=== PATIENT | female | born 1955 | race Caucasian/White ===

== ENCOUNTER 2020-01-09 15:41 | Emergency (ER) | payer BC ==
[2020-01-09 15:51] VITALS: BP 120/61; PULSE 90
--- NOTE | 2020-01-09 16:19 | EDM.PDOC ---
ED HPI GENERAL MEDICAL PROBLEM - General Chief Complaint: Upper Extremity Injury/Pain Stated Complaint: FALL VIA NORTH Time Seen by Provider: 01/09/20 15:42 Source of Information: Reports: Patient, EMS, RN, RN Notes Reviewed History Limitations: Reports: No Limitations - History of Present Illness INITIAL COMMENTS - FREE TEXT/NARRATIVE: Patient was walking her dog today when they came up on another known dog. Patient was not paying attention and her dog pulled to the end of its leash causing her to lose balance and fall. She landed predominantly on her right knee and probably rolling hitting her left elbow and shoulder. She also has a small abrasion on her left eyebrow. Patient denies loss of consciousness, denies headache but states she had nausea and diaphoresis just after the fall. She feels this is new the pain. She has limited range of motion in her left shoulder, her left elbow and has difficulty with bearing weight and flexing her right knee. Onset: Today, Sudden Onset Date: 01/09/20 Onset Time: 14:00 Duration: Minutes:, Constant Location: Reports: Head (Abrasion at left eyebrow,), Upper Extremity, Left (Sore shoulder and elbow), Lower Extremity, Right (Sore knee) Quality: Reports: Ache Severity: Moderate (Rates pain at a 3-4 overall) Improves with: Reports: Immobilization Worsens with: Reports: Movement Context: Reports: Trauma (Patient was walking her dog) Associated Symptoms: Denies: Confusion, Chest Pain, Headaches, Syncope, Weakness Left Shoulder Pain Score (Numeric/FACES): 4 Left Knee Pain Score (Numeric/FACES): 2 - Related Data Allergies Allergy/AdvReac Type Severity Reaction Status Date / Time amoxicillin trihydrate Allergy Cannot Verified 01/09/20 15:46 [From Augmentin] Remember potassium clavulanate Allergy Cannot Verified 01/09/20 15:46 [From Augmentin] Remember Sulfa (Sulfonamide Allergy Cannot Verified 01/09/20 15:46 Antibiotics) Remember Home Meds: Home Meds Aspirin 81 mg PO DAILY 03/31/15 [History] Lisinopril [Prinivil] 20 mg PO DAILY 03/31/15 [History] Multivitamin [Multiple Vitamins] 1 tab PO DAILY 03/31/15 [History] Past Medical History HEENT History: Reports: Impaired Vision Cardiovascular History: Reports: High Cholesterol Genitourinary History: Reports: None Musculoskeletal History: Reports: Other (See Below) Other Musculoskeletal History: hip and collarbone Oncologic (Cancer) History: Reports: Cervix - Past Surgical History Head Surgeries/Procedures: Reports: None HEENT Surgical History: Reports: None Cardiovascular Surgical History: Reports: None Female Surgical History: Reports: Other (See Below) Musculoskeletal Surgical History: Reports: Hip Replacement Oncologic Surgical History: Reports: None Dermatological Surgical History: Reports: None Social & Family History - Tobacco Use Smoking Status *Q: Former Smoker Used Tobacco, but Quit: Yes Month/Year Tobacco Last Used: 08/2019 Second Hand Smoke Exposure: No - Caffeine Use Caffeine Use: Reports: Coffee - Alcohol Use Days Per Week of Alcohol Use: 7 Number of Drinks Per Day: 2 Total Drinks Per Week: 14 - Recreational Drug Use Recreational Drug Use: No Review of Systems - Review of Systems Review Of Systems: See Below Constitutional: Reports: No Symptoms Eyes: Reports: No Symptoms Ears: Reports: No Symptoms Nose: Reports: No Symptoms Mouth/Throat: Reports: No Symptoms Respiratory: Denies: Shortness of Breath, Wheezing, Pleuritic Chest Pain, Cough, Sputum Cardiovascular: Denies: Chest Pain, Edema, Irregular Heart Rate, Lightheadedness, Palpitations GI/Abdominal: Reports: Nausea (She first felt she notes due to pain and resolved since incident.). Denies: Abdominal Pain Genitourinary: Reports: No Symptoms Musculoskeletal: Reports: Shoulder Pain (Left), Arm Pain (Left), Joint Pain (Right knee), Joint Swelling (Right knee), Other (Difficulty bearing weight due to knee pain) Skin: Reports: Wound (Abrasion left eyebrow, right knee) Neurological: Denies: Confusion, Dizziness, Headache, Numbness, Paresthesia, Seizure, Tingling, Tremors Psychiatric: Reports: No Symptoms ED EXAM, GENERAL - Physical Exam Exam: See Below Exam Limited By: No Limitations General Appearance: Alert, WD/WN, No Apparent Distress Eye Exam: Left Eye: PERRL Ears: Normal External Exam, Normal Canal, Hearing Grossly Normal, Normal TMs Nose: Normal Inspection, Normal Mucosa, No Blood Throat/Mouth: Normal Inspection, Normal Lips, Normal Teeth, Normal Gums, Normal Oropharynx Head: Normocephalic, Other (Abrasion left eyebrow) Neck: Normal Inspection, Supple, Non-Tender, Full Range of Motion Respiratory/Chest: No Respiratory Distress, Lungs Clear, Normal Breath Sounds, No Accessory Muscle Use, Chest Non-Tender Cardiovascular: Normal Peripheral Pulses, Regular Rate, Rhythm, No Edema, No Gallop, No JVD, No Murmur, No Rub GI/Abdominal: Normal Bowel Sounds, Soft, Non-Tender, No Organomegaly, No Distention, No Abnormal Bruit, No Mass, Pelvis Stable Back Exam: Normal Inspection, Full Range of Motion Extremities: Normal Inspection, No Pedal Edema, Normal Capillary Refill, Joint Swelling (Right knee), Arm Pain (Left shoulder and elbow), Limited Range of Motion (Left shoulder, left elbow, right knee), Redness (Knee). No: Normal Range of Motion, Non-Tender, Pedal Edema Neurological: Alert, Oriented, CN II-XII Intact, Normal Cognition, Normal Re flexes, No Motor/Sensory Deficits Psychiatric: Normal Affect, Normal Mood Skin Exam: Warm, Dry, Normal Color, No Rash, Erythema (Right knee), Increased Warmth (Right knee). No: Intact (Reason left eyebrow, right knee) Course - Vital Signs Last Recorded V/S: Last Vital Signs Temp 36.4 C 01/09/20 15:47 Pulse 90 01/09/20 15:47 Resp 16 01/09/20 15:47 BP 120/61 01/09/20 15:47 Pulse Ox 99 01/09/20 15:47 - Orders/Labs/Meds Orders: Active Orders 24 hr Category Date Time Status Elbow 2V Lt [CR] Stat Exams 01/09/20 16:08 Taken Knee 1V or 2V Lt [CR] Stat Exams 01/09/20 16:08 Taken Shoulder Comp Lt [CR] Stat Exams 01/09/20 16:08 Taken DME for Discharge [COMM] Routine Oth 01/09/20 17:22 Ordered Lt Elbow x-ray: Preliminary read no fractures or dislocations noted Right knee x-ray: Preliminary read vertical fracture of the right patella, no dislocations or fractures noted in the femur, tibia or fibula Left shoulder x-ray: Preliminary read proximal humeral head fracture dislocation noted. Consult with orthopedics [facility] knee immobilizer to right knee, sling for left arm. He will look at x-rays once he can get to a terminal. If he has any change in plan he will call the patient directly otherwise she is to be seen Sunday at 9 AM in the [place] [facility]. Patient is provided with providers name and number in case he has any questions or problems. Pt provided prescription for hydrocodone 10/04/2024 #20. Meds: Medications Discontinued Medications Generic Name Dose Route Start Last Admin Trade Name Paco PRN Reason Stop Dose Admin Hydrocodone Bitart/Acetaminophen 1 tab 01/09/20 16:36 01/09/20 16:42 [place] 325-5 Mg PO 01/09/20 16:37 1 tab ONETIME ONE Administration - Radiology Interpretation Free Text/Narrative:: See orders. - Re-Assessments/Exams Free Text/Narrative Re-Assessment/Exam: 01/09/20 21:21 Pt feeling better after pain medication. Rates pain at a 3 following pain meds. Pt informed of fractures seen on xray, consult with ortho, and ortho recommendations. Pt feels comfortable going home and following up with orthol Pt. has arranged work schedule to stay home with pt. Departure - Departure Time of Disposition: 18:29 Disposition: Home, Self-Care 01 Condition: Fair Clinical Impression: Fracture of humeral head, closed Qualifiers: Encounter type: initial encounter Laterality: left Qualified Code(s): S42.292A - Other displaced fracture of upper end of left humerus, initial encounter for closed fracture Patella fracture Qualifiers: Encounter type: initial encounter Fracture type: closed Fracture alignment: nondisplaced Laterality: right - Discharge Information *PRESCRIPTION DRUG MONITORING PROGRAM REVIEWED*: Yes (Wear sling on left arm to keep left shoulder immobolized, Keep right knee immobolized, weight bear as tollerated. May take hydrocodone 5/325 1-2 tabs every 4-6 hours as need for pain. Followup with Ravinder Rivas Sunday01/12/2020 at 0900 - If questions or concerns before Sunday call or return to ER) *COPY OF PRESCRIPTION DRUG MONITORING REPORT IN PATIENT ZAINAB: No Instructions: Humerus Fracture Treated With Immobilization, [id number], How To Use a Sling, [id number], Patellar Fracture, Adult Referrals: PCP,None [Primary Care Provider] - Forms: ED Department Discharge Additional Instructions: Follow up with Edward Rivas [facility] 01/12/2020 900. Pt educated to wear knee immobilizer, arm sling. Use crutch to aid in walking. DO not drive or operate anything that requires concentration while taking pain meds. Increase fluids to prevent constipation Care Plan Goals: Pain controlled with rx'd analgesia. Keep appointment with Ortho on Sunday Sepsis Event Note (ED) - Evaluation Sepsis Screening Result: No Definite Risk - Focused Exam Vital Signs: Vital Signs Temp Pulse Resp BP Pulse Ox 01/09/20 15:47 36.4 C 90 16 120/61 99 01/09/20 15:44 36.4 C 90 16 120/61 99 ED Communication - Discussed Case With (1) Discussed Case With (1): Other Provider Person/s Notified (1): Edward Rivas ([id number]) Date: 01/09/20 Time Called: 17:00 - Conversation Summary Outpatient Provider Agreed to Follow-up on this Patient: Yes Patient Aware of Amendments fo Care Plan: Yes Summary Comment: Ortho consult Edward Rivas - treatment of fractures (patella and humeral head fx) Knee immobilizer; Arm sling - He will see pt in [facility] clinic Sunday at 9am - Problem List & Annotations (1) Fracture of humeral head, closed SNOMED Code(s): 237359885 Code(s): S42.293A - OTH DISP FX OF UPPER END OF UNSP HUMERUS, INIT FOR CLOS FX Status: Acute Qualifiers: Encounter type: initial encounter Laterality: left Qualified Code(s): S42.292A - Other displaced fracture of upper end of left humerus, initial encounter for closed fracture (2) Patella fracture SNOMED Code(s): 85750556 Code(s): S82.009A - UNSP FRACTURE OF UNSP PATELLA, INIT FOR CLOS FX Status: Acute Qualifiers: Encounter type: initial encounter Fracture type: closed Fracture alignment: nondisplaced Laterality: right - My Orders Last 24 Hours: My Active Orders 01/09/20 16:08 Elbow 2V Lt [CR] Stat Knee 1V or 2V Lt [CR] Stat Shoulder Comp Lt [CR] Stat 01/09/20 17:22 DME for Discharge [COMM] Routine - Assessment/Plan Last 24 Hours: My Active Orders 01/09/20 16:08 Elbow 2V Lt [CR] Stat Knee 1V or 2V Lt [CR] Stat Shoulder Comp Lt [CR] Stat 01/09/20 17:22 DME for Discharge [COMM] Routine
[2020-01-09] MEDS ORDERED: Acetaminophen/HYDROcodone 325-5 MG Tab PO ONE (16:36)
--- NOTE | 2020-01-12 09:13 | CR ---
Shoulder Comp Lt, Elbow 2V Lt CLINICAL HISTORY: Fall FINDINGS: There is a displaced fracture greater tubercle. There is moderate osteoarthritic change Impression: Slightly displaced fracture of the proximal humerus , Elbow 2V Lt CLINICAL HISTORY: Fall FINDINGS: No acute fracture or dislocation is noted. The fat pads are in normal position. There is some deformity of the distal humerus with anterior positioning of the capitellum This may be from old injury. Impression: Limited 2 view study Deformity of the distal humerus may be related to old injury. No hemarthrosis is identified
--- NOTE | 2020-01-12 09:14 | CR ---
Knee 1V or 2V Lt CLINICAL HISTORY: Pain, fall FINDINGS: There is nondisplaced comminuted oblique fractureof the patella. There is moderate osteoarthritic change. Bones are osteopenic Impression: Comminuted nondisplaced patellar fracture Moderate osteoarthritis
== END 2020-01-09 18:29 | disposition home or self-care (01) ==
LOC: JP.ED 15:41
DX: S82.045A Nondisplaced comminuted fracture of left patella, initial encounter for closed fracture (principal); S42.252A Displaced fracture of greater tuberosity of left humerus, initial encounter for closed fracture; Z88.1 Allergy status to other antibiotic agents; Z88.2 Allergy status to sulfonamides; Z79.82 Long term (current) use of aspirin; Z79.899 Other long term (current) drug therapy; Z87.891 Personal history of nicotine dependence; S00.212A Abrasion of left eyelid and periocular area, initial encounter; W01.10XA Fall on same level from slipping, tripping and stumbling with subsequent striking against unspecified object, initial encounter
CPT/HCPCS: 73030; 73070; 73560; 99283; A9270

== ENCOUNTER 2020-10-19 06:54 | Day surgery (SDC) | payer MEDICARE, BC ==
[2020-10-19] MEDS ORDERED: Midazolam 1 MG/ML 2 ML SDV ONE (07:18)
[2020-10-19] MEDS ORDERED: fentaNYL 100 MCG/2 ML SDV ONE (07:18)
[2020-10-19] MEDS ORDERED: Propofol 200 MG/20 ML SDV ONE (07:18)
[2020-10-19] MEDS ORDERED: Dextrose 5%-Lactated Ringers 1,000 ML IV SCH (07:30)
[2020-10-19 09:41] VITALS: BP 149/69; PULSE 87
--- NOTE | 2020-10-26 16:39 | OR ---
DATE OF PROCEDURE: 10/19/2020 SURGEON: Kobe Davis MD PREOPERATIVE DIAGNOSIS: History of colon polyps. POSTOPERATIVE DIAGNOSIS: Normal colonoscopic examination with no recurrent polyps. PROCEDURE PERFORMED: Flexible colonoscopy. ANESTHESIA: IV sedation. INDICATION FOR PROCEDURE: A 65-year-old female presenting with a history of colon polyps for planned subsequent screening colonoscopy. Potential risks of the procedure including bleeding and perforation were discussed, and the patient wishes to proceed. DETAILS OF PROCEDURE: The patient was taken to the operating room and placed in a left lateral decubitus position. IV sedation was administered after which the initial digital rectal exam was performed and was unremarkable. The colonoscope was passed into the rectum with retroflexion revealing uncomplicated hemorrhoidal columns. The scope was eventually passed to the level of the cecum. The prep was fairly good. Only a small amount of liquid stool was present. To that level, there were no abnormalities noted, specifically no diverticula, no areas of colitis, no polyps or other signs of neoplasia. The scope was then withdrawn with the above findings reconfirmed and the procedure was then concluded. The patient was taken to the recovery room in satisfactory condition. Given the personal history of colon polyps, the next colonoscopy should be scheduled in 5 years. Kobe Davis MD /[id number]
== END 2020-10-19 10:05 | disposition home or self-care (01) ==
LOC: JP.SDS 06:54
PROVIDERS: ATTEND Surgery
DX: Z12.11 Encounter for screening for malignant neoplasm of colon (principal); K64.9 Unspecified hemorrhoids; I10 Essential (primary) hypertension; J43.9 Emphysema, unspecified; Z88.1 Allergy status to other antibiotic agents; Z88.2 Allergy status to sulfonamides; Z88.8 Allergy status to other drugs, medicaments and biological substances; Z86.010 Personal history of colon polyps
CPT/HCPCS: G0105; J2250; J2704; J3010; J7121